=== PATIENT | female | born 1955 | race Two or more races ===

== ENCOUNTER 2017-09-28 08:00 | Inpatient (IN) | payer SELFPAY ==
[~2017-09-28] VITALS: Ht 162.6 cm; Wt 71.2 kg
[~2017-09-28 08:00] MED LIST: ASPI-482 PO; CHOL10003 PO; LISI1TAB7 PO
[2017-09-30] VITALS (8 sets, daily range): BP systolic 112–143; BP diastolic 59–69
[2017-09-30] MEDS ORDERED: fentaNYL PF VIAL 100 MCG/2 ML VIAL IV PRN (07:00)
[2017-09-30] MEDS ORDERED: HYDROmorphone 2 MG/ML VIAL IV PRN ×2 (07:00→14:45)
[2017-09-30] MEDS ORDERED: IV RINGERS,LACTATED 1000ML 1,000 ML IV SCH (07:00)
[2017-09-30] MEDS ORDERED: ONDANSETRON PF 4 MG/2 ML VIAL. IV PRN (07:00)
[2017-09-30] MEDS ORDERED: LIDOCAINE 1% PF 2 ML VIAL. ID PRN (07:00)
[2017-09-30] MEDS ORDERED: LIDOCAINE 1% / SOD BICARB 8.4% 20 ML VIAL. IJ ONE (08:00)
[2017-09-30] MEDS: IV RINGERS,LACTATED 1000ML 1,000 ML IV SCH ×2 (10:16→15:47)
[2017-09-30] MEDS ORDERED: SEVOFLURANE > 120 MINUTES. IH ONE (11:22)
[2017-09-30] MEDS ORDERED: MIDAZOLAM HCL/PF 2 MG/2 ML VIAL. ONE (11:23)
[2017-09-30] MEDS ORDERED: LIDOCAINE 2% PF Vial for OR 5 ML VIAL. ONE (11:23)
[2017-09-30] MEDS ORDERED: PROPOFOL 20 ML IV ONE ×2 (11:23→14:32)
[2017-09-30] MEDS ORDERED: fentaNYL PF VIAL 100 MCG/2 ML VIAL ONE ×2 (11:23→13:00)
[2017-09-30] MEDS ORDERED: DEXAMETHASONE SOD PHOS 20 MG/5 ML VIAL. ONE (11:23)
[2017-09-30] MEDS ORDERED: ONDANSETRON PF 4 MG/2 ML VIAL. ONE (11:23)
--- NOTE | 2017-09-30 12:03 | RAD ---
Left breast radionuclide sentinel node localization, 09/30/2017: History: Left breast cancer Under aseptic conditions and utilizing ethyl chloride spray for topical anesthesia, a total of 0.9 mCi of filtered technetium 99m sulfur colloid mixed with 0.5 cc of 1% buffered lidocaine was injected subdermally in the left periareolar region in 4 divided doses. The patient tolerated the procedure well and was sent to surgery in good condition. No imaging was performed, as requested.
[2017-09-30] MEDS ORDERED: ISOSULFAN BLUE 50 MG/5 ML VIAL. SQ ONE (12:13)
[2017-09-30] MEDS ORDERED: BUPIVAC MPF-EPI 0.5%-1:200000 30 ML VIAL. ONE (12:13)
[2017-09-30] MEDS ORDERED: METHYLENE BLUE 1% 10 ML VIAL. ONE (12:13)
--- NOTE | 2017-09-30 14:31 | PDOC ---
BRIEF OPERATIVE NOTE Date: Sep 30, 2017 Pre-Op Diagnosis invasive carcinoma, left breast Post-Op Diagnosis same Procedure Performed left sentinel lymph node biopsy left simple mastectomy Surgeon Dennis HERNANDEZ Anesthesia Type: General Blood Loss 100cc IV Fluid 1300cc Specimens Obtained left axillary sentinel lymph node left breast, stitch at 09:00 Findings negative SLN tumor abuts pectoralis muscle Complications none Operative Note WK # [id number] THOMAS CONRAD MD Sep 30, 2017 14:31
[2017-09-30] MEDS ORDERED: oxyCODONE/APAP 5/325 1 TAB TABLET PO PRN ×2 (14:45)
[2017-09-30] MEDS ORDERED: 0.9 % SODIUM CHLORIDE 10 ML DISP.SYRIN. IV PRN ×2 (14:45)
--- NOTE | 2017-09-30 14:49 | RAD ---
Portable chest, 09/30/2017: History: Postop evaluation, incorrect needle count There are surgical drains overlying the left breast region. There is no evidence of a retained surgical instrument, needle or radiopaque sponge on this single view. The heart is at the upper limits of normal in size. There is minimal perihilar atelectasis bilaterally. No pleural fluid or pneumothorax is seen. IMPRESSION: 1. No retained surgical needle is evident on this image. 2. Mild bilateral perihilar atelectasis.
[2017-09-30] MEDS: PROCHLORPERAZINE 10 MG/2 ML VIAL. IV PRN ×2 (14:53→15:08)
[2017-09-30] MEDS: fentaNYL PF VIAL 100 MCG/2 ML VIAL IV PRN ×2 (14:54→15:08)
--- NOTE | 2017-09-30 14:56 | OP ---
DATE OF SURGERY: 09/30/2017 PREOPERATIVE DIAGNOSIS: Invasive carcinoma, left breast. POSTOPERATIVE DIAGNOSIS: Invasive carcinoma, left breast. PROCEDURES: 1. Left sentinel lymph node biopsy. 2. Left simple mastectomy. SURGEON: Chava Conrad MD SHORE MAN: JAE Muñoz. ANESTHESIA: General LMA. ESTIMATED BLOOD LOSS: 100 mL. INTRAVENOUS FLUIDS: ____ mL. INDICATIONS: The patient is a 62-year-old with biopsy-proven invasive cancer, brought for mastectomy and sentinel node biopsy. OPERATIVE REPORT: The patient went to the Nuclear Medicine area where she was injected with radioisotope for sentinel node identification. She was brought to the OR, given a general LMA and the left breast, arm and chest were prepped and draped in usual sterile fashion. A 4 mL of Lymphazurin were injected intradermally, circumareolarly and the breast was gently massaged for 5 minutes. Elliptical skin incision was outlined with a marking pen. The superior skin flap was incised and developed with cautery dissection up to the axilla. We then made our way into the axilla using the C-Trak probe as a guide. A "hot" blue stained lymph node was identified and harvested and sent for frozen section. While awaiting those results, the inferior skin flap was made and developed with cautery and the breast swept off the chest wall from medial to lateral and the breast removed en bloc. Intraoperative report was negative for evidence of metastasis to the sentinel node. As such, we checked the wound for adequate hemostasis. When present, two 19-Spanish round Vladislav drains were placed, the medial drain under the superior skin flap, the lateral drain into the axilla. During removal of the breast, an area of possible muscle invasion was identified and as such, some pectoralis musculature was shaved off en bloc with the specimen. Small vascular clips were placed at 12, 3, 6, and 9 around the area of concern left on the chest wall, although no gross tumor was seen. When a correct sponge count had been obtained and hemostasis was present, the wound was closed with interrupted inverted 3-0 Vicryl in the subcutaneous tissue, subcuticular 4-0 Monocryl with Steri-Strips for the skin. Sterile dressings applied. The patient awakened from her anesthetic and taken to the recovery room in satisfactory condition. CHAVA CONRAD MD DR: Gutierrez JOB#: [id number] / [id number]
[2017-09-30] MEDS: MORPHINE SULFATE 2 MG/ML DISP.SYRIN. IV PRN ×4 (15:15→15:49)
[2017-09-30] MEDS ORDERED: ENOXAPARIN 40 MG/0.4 ML SYRINGE. SQ SCH (21:00)
[2017-10-01 00:55] VITALS: BP 104/63
[2017-10-01 05:15] VITALS: BP 117/68
[2017-10-01] MEDS ORDERED: NON FORMULARY ITEM (Lisinopril/Hydrochlorothiazide (Lisinopril-Hctz 20-25 Mg Tab) 1 TAB) PO SCH (09:00)
[2017-10-01] MEDS ORDERED: LISINOPRIL 20 MG TABLET PO SCH (09:00)
[2017-10-01] MEDS ORDERED: hydroCHLOROthiazide 25 MG TABLET PO SCH (09:00)
[2017-10-01 11:00] VITALS: BP 110/64
--- NOTE | 2017-10-01 11:26 | DISCH ---
DISCHARGE INSTRUCTIONS Condition on Discharge Condition on Discharge: Stable Activity After Discharge Activity Instructions for Disc: Activity as tolerated, Avoid exertion Lifting Instructions after Dis: No heavy lifting Driving Instructions after Dis: Do not drive Wound Incision Care Wound/Incision Care: Ice to area for comfort, Keep wound/cast CDI Other wound/incision instructi: empty drains and record output as needed Follow-Up Follow up with: 10/06 THOMAS CONRAD MD Oct 01, 2017 11:26
--- NOTE | 2017-10-01 11:30 | PDOC3 ---
Discharge Summary Visit Information Date of Admission: Sep 30, 2017 Date of Discharge: Oct 01, 2017 Admitting Diagnosis Comment: invasive carcinoma Final Diagnosis same Brief Hospital Course Allergies Allergies Coded Allergies Type Severity Reaction Last Updated Verified No Known Drug Allergies 09/30/17 No Vital Signs Vital Signs Date Time Temp Pulse Resp B/P (MAP) Pulse Ox O2 Delivery O2 Flow Rate FiO2 10/01/17 05:15 98.0 71 14 117/68 (84) Room Air 98.0 10/01/17 00:55 93 09/30/17 16:55 2.0 Brief Hospital Course Ms. Cortez is a 62 old female who presented with biopsy proven carcinoma left breast. She underwent a left simple mastectomy with SLN biopsy. She did well and was released to home POD 1 Discharge Information Condition at Discharge: Stable Follow Up: Weeks Disposition/Orders: D/C to Home Scheduled Aspirin (Aspir 81), 1 TAB PO DAILY, (Reported) Lisinopril/Hydrochlorothiazide (Lisinopril-Hctz 20-25 Mg Tab), 1 TAB PO DAILY, ( Reported) Miscellaneous Medications Cholecalciferol (Vitamin D3) (Vitamin D3), 1,000 UNIT PO, (Reported) THOMAS CONRAD MD Oct 01, 2017 11:30
== END 2017-10-01 12:09 | disposition home or self-care (01) | DRG 581 ==
LOC: SURHIP 09-30 09:40 → 3 SO LND 09-30 16:00
PROVIDERS: ADMIT Surgery; ATTEND Surgery
PROC: 0HBU0ZZ Excision of Left Breast, Open Approach (ICD-10-PCS; principal; 2017-09-30 11:30)
PROC: 07B70ZX Excision of Thorax Lymphatic, Open Approach, Diagnostic (ICD-10-PCS; 2017-09-30 11:30)
DX: C50.912 Malignant neoplasm of unspecified site of left female breast (principal)
CPT/HCPCS: 38792; 71010; 96374; A9541; C1769; J0690; J0780; J1100; J1650; J2250; J2270; J2405; J2704; J3010; J3490; J7120; Q9968; J2001